=== PATIENT | male | born 1955 | race Asian ===

== ENCOUNTER 2019-06-12 12:54 | Emergency (ER) | payer OTHER, MEDICAID ==
[~2019-06-12] VITALS: Ht 182.9 cm; Wt 79.4 kg
[~2019-06-12 12:54] MED LIST: ALBUTEROL SULF8.5 GM INH; ALBUTEROL2.5 MG/3 M INH; ATORVASTATIN CA20 MG ORAL; MONTELUKAST SOD10 MG ORAL; SANDOZ; TRAMADOL HCL50 MG ORAL; [UNRECOGNIZED DRUG - OTHER]
[2019-06-12 13:01] VITALS: BP 144/91
--- NOTE | 2019-06-12 13:03 | NUR ---
ED Nurse Note: pt brought in to ER from home due to Rt hand dog bite. pt reported it was his landload's dog and he always feeds him and today the dog bit him unexpectedly. pt aao x4 and ambulatory. skin intact besides Rt hand bite. Rt hand is bleeding and biting site deep and opened. per pt, it was pitbull and the dog was behind fence.
[2019-06-12] MEDS ORDERED: Tylenol #3 tab (300mg/30mg) ORAL ONE (13:15)
[2019-06-12] MEDS ORDERED: Ketorolac 30mg Inj IM ONE (13:15)
--- NOTE | 2019-06-12 13:35 | NUR ---
ED Nurse Note: x-ray at bedside.
--- NOTE | 2019-06-12 14:06 | NUR ---
ED Nurse Note: ERPA at bedside for suturing Rt hand bite wound.
--- NOTE | 2019-06-12 14:08 | NUR ---
ED Nurse Note: pt reported the dog was not pitbull, it was Jindo dog which is [place] breed.
--- NOTE | 2019-06-12 14:18 | Emergency Room Report ---
History of Present Illness General Chief Complaint: Animal Bite Source: Patient Present Illness HPI 64-year-old male with no significant past medical history brought in by paramedics due to dog bite on right hand. Patient reports that it was landlords dog as he was feeding the dog he started beating him. Patient is up- to-date with tetanus shot. Multiple bites noted. Patient is complaining of pain wanting something for pain rating a 10 out of 10. Also treats staff members rudely and keeps saying that if he needs to her EMS he wants to go home. Denies all other symptoms, injury, chest pain, shortness of breath, palpitation, and other associated symptoms. Denies being on any blood thinners or taking any medication at this time. Denies tobacco smoke. Allergies: Coded Allergies: No Known Allergies (Unverified , 09/01/13) Patient History Past Medical History: see triage record Past Surgical History: unable to obtain Pertinent Family History: none Immunizations: UTD - tdap utd Reviewed Nursing Documentation: PMH: Agreed; PSxH: Agreed Nursing Documentation-PMH Hx Hypertension: Yes Hx Asthma: Yes Review of Systems All Other Systems: negative except mentioned in HPI Physical Exam Vital Signs Date Time Temp Pulse Resp B/P (MAP) Pulse Ox O2 Delivery O2 Flow Rate FiO2 06/12/19 12:48 97.2 101 18 144/91 (108) 98 Room Air Sp02 EP Interpretation: reviewed, normal General Appearance: no apparent distress, alert, GCS 15, non-toxic Head: normocephalic, atraumatic Eyes: bilateral eye normal inspection, bilateral eye PERRL ENT: hearing grossly normal, normal pharynx, no angioedema, normal voice Neck: full range of motion, supple/symm/no masses Respiratory: chest non-tender, lungs clear, normal breath sounds, no wheezing, speaking full sentences Cardiovascular #1: regular rate, rhythm, no edema, no murmur, normal capillary refill Cardiovascular #2: 2+ radial (R), 2+ radial (L) Gastrointestinal: normal bowel sounds, non tender, soft, non-distended, no guarding, no rebound Rectal: deferred Genitourinary: no CVA tenderness Musculoskeletal: back normal Neurologic: alert, motor strength/tone normal, oriented x3, sensory intact, responsive, speech normal Psychiatric: judgement/insight normal, memory normal, mood/affect normal, no suicidal/homicidal ideation Skin: laceration - Dorsum of right hand, and multiple small laceration very superficial on dorsum of right hand due to dog bite Lymphatic: no adenopathy Procedures Laceration/Wound Repair Laceration/Wound Repair : Consent: Verbal Wound Location: upper extremity - Right hand Wound's Depth, Shape: superficial Wound Length (cm): 1 Wound Explored: contaminated Irrigated w/ Saline (ccs): 10 Betadine Prep?: Yes Anesthesia: Lidocaine w/ Epi Volume Anesthetic (ccs): 5 Wound Repaired With: sutures, Steri-strips, Dermabond Suture Size/Type: 5:0, proline Number of Sutures: 5 Layer Closure?: Yes Sterile Dressing Applied?: Yes Splint Applied?: No Patient Tolerated: Well Complications: None Medical Decision Making PA Attestation All my diagnosis and treatment plans were reviewed ad discussed with my supervising physician Dr. Tam Diagnostic Impression: Primary Impression: Laceration of hand Additional Impression: Dog bite ER Course 64-year-old male with no significant past medical history brought in by paramedics due to dog bite on right hand. Patient reports that it was landlords dog as he was feeding the dog he started beating him. Patient is up- to-date with tetanus shot. Multiple bites noted. Patient is complaining of pain wanting something for pain rating a 10 out of 10. Also treats staff members rudely and keeps saying that if he needs to her EMS he wants to go home. Denies all other symptoms, injury, chest pain, shortness of breath, palpitation, and other associated symptoms. Denies being on any blood thinners or taking any medication at this time. Denies tobacco smoke. Ddx considered but are not limited to : Superficial laceration, deep laceration , tendon involvement with laceration, laceration with foreign body Vital signs: are WNL, pt. is afebrile H&PE are most consistent with: Superficial laceration of hand due to dog bite ORDERS: Augmentin, hand x-ray, ibuprofen ED INTERVENTIONS: Wound closure, wound clean and dressed, Toradol, Tylenol 3 DISCHARGE: At this time pt. is stable for d/c to home. Will provide printed patient care instructions, and any necessary prescriptions. Care plan and follow up instructions have been discussed with the patient prior to discharge. Loose sutures were applied to 1 of the lacerations, take medication as directed, sutures to be removed in 7 to 10 days. If worsening symptoms return to the emergency room. Dermabond is applied to the other laceration, patient tolerated well. Other X-Ray Diagnostic Results Other X-Ray Diagnostic Results : X-Ray ordered: Right hand # of Views/Limited Vs Complete: 3 View Indication: Pain EP Interpretation: Yes PA Xray: Interpretation reviewed, by supervising MD, and agrees with findings. Interpretation: no dislocation, no soft tissue swelling, no fractures Impression: No acute disease Electronically Signed by: Kaitlyn Noe PA-C Last Vital Signs Date Time Temp Pulse Resp B/P (MAP) Pulse Ox O2 Delivery O2 Flow Rate FiO2 06/12/19 14:03 97.2 06/12/19 13:01 101 18 144/91 98 Room Air Disposition: HOME, SELF-CARE Condition: Stable Scripts Amoxicillin/Potassium Clav 875-125* (AUGMENTIN 875-125 TABLET*) 1 Each Tablet 1 TAB ORAL TWICE A DAY for 10 Days, #20 TAB Prov: Kaitlyn Mays 06/12/19 Ibuprofen (Ibu) 800 Mg Tablet 800 MG PO BID, #20 TAB Prov: Kaitlyn Mays 06/12/19 Referrals: NON PHYSICIAN (PCP) Patient Instructions: Animal Bite, [id number], Laceration Care, Adult, Easy- to-Read Additional Instructions: Take medication as directed, sutures to be removed in 7 to 10 days.. If worsening symptoms return to emergency room Kaitlyn Mays Jun 12, 2019 14:18
[2019-06-12] MEDS ORDERED: IBU800 MG PO (14:19)
[2019-06-12] MEDS ORDERED: AUGMENTIN 875-1 EAC1 ORAL (14:19)
[2019-06-12 14:22] VITALS: BP 144/91
--- NOTE | 2019-06-12 14:23 | NUR ---
ED Nurse Note: Pt cleared by health care Provider for discharge after sutures done on Rt hand by ERPA. Patient accomapnied by . DC instructions/prescription was given and explained to pt and verbalized understanding of teachings. All medical deviecs such as ID band removed. Pt is AAO x4, ambulatory and left with all personal belongings.
--- NOTE | 2019-06-13 10:53 | Diagnostic Imaging Report ---
Indication: Pain status post trauma/dogbite Technique: XRAY Hand Complete R Comparison: None Findings/Impression: Bone mineralization within normal limits. No acute fracture or dislocation is identified. There are mild degenerative changes. There is soft tissue irregularity/laceration involving the dorsal aspect of the hand with punctate subcutaneous radiodensities/foreign bodies which measure less than 1 mm. Correlation with physical exam recommended.
== END 2019-06-12 14:24 | disposition home or self-care (01) ==
LOC: EDBD 12:54 → EMR 13:58
DX: S61.451A Open bite of right hand, initial encounter (principal); S61.411A Laceration without foreign body of right hand, initial encounter; W54.0XXA Bitten by dog, initial encounter; Y92.9 Unspecified place or not applicable; I10 Essential (primary) hypertension
CPT/HCPCS: 12001; 73130; 96372; 99283; J1885